=== PATIENT | male | born 1960 ===

== ENCOUNTER 2017-05-26 05:35 | Day surgery (SDC) | payer OTHER ==
[~2017-05-26 05:35] MED LIST: LISINOPRIL10 MG PO; METFORMIN HCL850 MG PO
[2017-05-26] MEDS ORDERED: Septra Ds Tablet PO (12:51)
[2017-05-26] MEDS ORDERED: TRAM1TAB98 PO (12:51)
== END 2017-05-26 16:25 | disposition home or self-care (01) ==
LOC: CIR.AMB 05:35
DX: M23.321 Other meniscus derangements, posterior horn of medial meniscus, right knee (principal); M17.11 Unilateral primary osteoarthritis, right knee